=== PATIENT | female | born 1990 | race Two or more races ===

== ENCOUNTER 2024-07-11 19:37 | Emergency (ER) | payer MEDICAID, SELFPAY ==
[2024-07-11 19:38] VITALS: BMI 34.4
[2024-07-11 19:47] VITALS: BP 101/67; PULSE 60; RESP 17; TEMP 36.9; O2SAT 97
--- NOTE | 2024-07-11 20:09 | XR_ITS ---
Examination: PA lateral chest 2 views Technique: Upright PA lateral chest 2 views Exam date and time: June 10, 20252015 hrs. Comparison 03/15/2024 Indications: Chest tightness a few days Findings: Normal heart size Lungs are clear. The osseous structures are intact Impression: No active disease
--- NOTE | 2024-07-11 20:10 | PD.EDURI ---
Upper Respiratory Inf. RME/HPI General Chief Complaint: Flu Like Symptoms Stated Complaint: FLU LIKE SYMPTOMS;CP RAD TO BACK Time Seen by Provider: 07/11/24 19:48 Arrival date/time: 07/11/24 19:37 34-year-old female with a history of tobacco smoking but no history of asthma or lung disorders reports today with complaints of shortness of breath. Patient states that she has had a little bit of a cough and congestion for the last 2 or 3 days that suddenly developed into the shortness of breath. Patient states that she has been exposed to pneumonia as well as influenza. She denies any chest pain nausea vomiting abdominal pain weakness fatigue fever or chills. Patient states that she has been taking mhji-zyr-tzhyaax medications with no resolution of the shortness of breath Limitations: no limitations Related Data Home Medications ?Medication ?Instructions ?Recorded ?Confirmed vit no.95-ferrous 1 tab PO QDAY 04/08/21 10/07/21 fumarate 28 mg-folic acid 800 mcg tablet ( Multivitamins) Previous Rx's ?Medication ?Instructions ?Recorded benzocaine 20 %-menthol 0.5 % 1 spray topical TID #56 pumps 10/07/21 topical aerosol (Dermoplast (with menthol)) ibuprofen 800 mg tablet 800 mg PO Q6H PRN pain #90 tabs 10/07/21 lanolin 50 % topical ointment 1 applic topical TID PRN skin 10/07/21 irritation #15 tubes ibuprofen 800 mg tablet 800 mg PO TID PRN pain #30 tabs 05/27/22 albuterol sulfate 90 mcg/actuation 2 puff inhalation Q6H PRN 06/29/23 aerosol inhaler (Ventolin HFA) shortness of breath or wheezing #8.5 grams azithromycin 500 mg tablet See Rx Instructions PO .COMPLEX #6 06/29/23 tabs albuterol sulfate 90 mcg/actuation 2 puff inhalation Q4H PRN 07/11/24 aerosol inhaler shortness of breath or wheezing #8.5 grams prednisone 20 mg tablet 60 mg PO QDAY 4 days #12 tabs 07/11/24 Allergies Allergy/AdvReac Type Severity Reaction Status Date / Time No Known Allergies Allergy Verified 07/11/24 19:40 Review of Systems Constitutional Constitutional: Denies chills, Denies fever(s) and Denies headache(s) ENT Ears, Nose, Mouth, and Throat: Denies headache(s), Denies neck pain, Denies throat swelling, Denies tongue swelling and Denies vertigo Cardiovascular Cardiovascular: Denies chest pain and Reports dyspnea Respiratory Respiratory: Reports cough and Reports dyspnea Gastrointestinal Gastrointestinal: Denies nausea and Denies vomiting Musculoskeletal Musculoskeletal: Denies arthralgias, Denies back pain and Denies neck pain Integumentary/Breasts Skin/Breast: Denies erythema and Denies rash Neurologic Neurologic: Denies headache(s) and Denies vertigo Allergic/Immunologic Allergic/Immunologic: Denies throat swelling and Denies tongue swelling Past Medical History Past Medical History NEUROLOGIC: Positive Neurological Disorders and Seizures CARDIAC: Negative Cardiac Disorders or Congestive Heart Failure RESPIRATORY: Negative Chronic Obstructive Pulmonary Disease (COPD) or Asthma GASTROINTESTINAL: Negative Gastrointestinal Disorders GENITOURINARY: Negative Genitourinary Disorders or Renal Disease REPRODUCTIVE: Negative Pelvic Inflammatory Disease MUSCULOSKELETAL: Negative Musculoskeletal Disorders ENDOCRINE: Negative Endocrine Disorders, Diabetes Mellitus Type 1 or Diabetes Mellitus Type 2 HEMATOLOGIC: Negative Blood Disorders or Sickle Cell Disease OTHER HISTORY: Negative Autoimmune Disease, Blood Transfusions, Blood Transfusion Reaction, Anesthesia Reactions, Organ Transplant, Chemotherapy, Radiation Therapy, Hyperbaric Therapy, MRSA, VRSA, Vancomycin-Resistant Enterococci or Cancer Family History FAMILY HISTORY: Positive Family Cardiac Disorders and Family Surgery; Negative Family Psychiatric Problems, Family Respiratory Disorders, Family Gastrointestinal Problems, Family Cancer or Family Anesthesia Reaction Surgical History SURGICAL: Negative Section or Organ Transplant Social History SMOKING STATUS: Never smoker ED Exam General Limitations: Present no limitations General appearance: Present alert and in no apparent distress Head Head exam: Present atraumatic Eye Eye exam: Present normal appearance, PERRL and EOMI ENT ENT exam: Present normal exam, normal oropharynx and mucous membranes moist Neck Neck exam: Present normal inspection, full ROM and trachea midline Chest Chest inspection: Present normal inspection and symmetric chest wall rise Respiratory Respiratory exam: Present normal lung sounds bilaterally Cardiovascular Cardiovascular exam: Present regular rate, normal rhythm and normal heart sounds Abdominal Exam Abdominal exam: Present soft and normal bowel sounds Extremities Exam Extremities exam: Present normal inspection and full ROM Back Exam Back exam: Present normal inspection and full ROM Neurological Exam Neurological exam: Present alert, oriented X3 and CN II-XII intact Psychiatric Psychiatric exam: Present normal affect and normal mood Skin Skin exam: Present warm, dry, intact and normal color Course Course Course Narrative: 34-year-old female reports with complaints of shortness of breath. Patient's chest x-ray is without infiltrates or opacities COVID and influenza test are negative. Patient did receive an albuterol nebulizer and reassessment of the patient states that the tightness in her chest has not completely resolved but has improved significantly. Patient reports still persistent nasal congestion but no chest pain no abdominal pain no nausea or vomiting. Patient is respirations are 18 and oxygen saturations of 98% lungs are clear to auscultation bilaterally. Differential diagnosis includes upper respiratory infection versus lower respiratory infection versus influenza versus COVID versus pneumonia. Patient is currently stable nontoxic-appearing with stable vital signs she will be discharged home given a prescription for steroids albuterol inhaler advised on ggjz-boz-vmnozjr medications for congestion and following up with her primary care provider in 24 to 48 hours. Patient is also advised that her symptoms should worsen to return to the emergency department patient verbalized understanding Quality Measures none Orders Category Date Time Status Bedside COVID-19 Antigen Test NOW Care 07/11/24 20:09 Active Bedside Influenza A&B Antigen Test NOW Care 07/11/24 20:09 Completed XR chest 2V Stat Exams 07/11/24 20:09 Completed ALBUTEROL RT 0.5ml [Proventil Rt 0.5ml] Med 07/11/24 20:09 Discontinued 2.5 mg INH X1 ONE Dexamethasone Inj [Decadron Inj] Med 07/11/24 21:53 Discontinued 10 mg PO X1 ONE Sodium Chloride Rt Kisha 0.9% [NS Rt Kisha 0.9%] Med 07/11/24 20:09 Active 3 ml INH PRN PRN Vital Signs Vital signs: Vital Signs Temperature 98.5 F 07/11/24 19:47 Pulse Rate 60 07/11/24 19:47 Respiratory Rate 17 07/11/24 19:47 Blood Pressure 101/67 07/11/24 19:47 Pulse Oximetry (%) 97 07/11/24 19:47 Oxygen Delivery Method Room Air 07/11/24 19:47 Upper Respiratory Infection Patient data External records reviewed:: None Clinical information provided by:: patient Social determinants that could affect healthcare access:: none Patient has the following chronic illnesses:: none How is presenting disease/condition affected by chronic disease/condition?: no chronic disease Evaluation data The following diagnostics were reviewed and interpreted by me:: lab results and radiology exam(s) Lab and/or radiology exams considered but not ordered:: none Interpretation Summary: Negative for evidence of flu COVID or pneumonia Medications / Prescriptions Medications or Prescriptions considered but not ordered:: None Medication administrations:: Medication Administration History Sodium Chloride (Sodium Chloride Rt Kisha 0.9% 3 Ml Nebu) 3 ml INH PRN PRN PRN Reason: SOLN Stop: 08/10/24 20:08 Last Admin: 07/11/24 20:22 Dose: 3 ml Documented By: STEFANI Discontinued Medications Albuterol (Albuterol Rt 2.5 Mg/0.5 Ml Nebu) 2.5 mg INH X1 ONE Stop: 07/11/24 20:10 Last Admin: 07/11/24 20:21 Dose: 2.5 mg Documented By: STEFANI Dexamethasone Sodium Phosphate (Dexamethasone Sod Phos Inj 10 Mg/Ml Vial) 10 mg PO X1 ONE Stop: 07/11/24 21:54 As above Consultations Consultation(s) initiated? (list below): No Diagnosis Upper Respiratory Differential Diagnosis: upper respiratory infection Most likely diagnosis given after review of the tests above:: Viral upper respiratory infection Admission Indicated Admission indicated?: not indicated Admission Request Was there a request for admission?: No Disposition Plan Disposition Plan: Discharge Discharge Attestation Discharge Attestation: The patient and all family members were given an opportunity to ask questions and understood the discharge instructions. Discharge instructions specifically effects, indications for sooner follow up or return to the emergency department, and the expected course of current diagnosis. Patient condition: Stable Discharge Plan Plan Patient Disposition: HOME (Self Care) Prescriptions/Referrals Prescriptions/Med Rec: New prednisone 20 mg tablet 60 mg PO QDAY 4 Days Qty: 12 0RF Taper: Prednisone Taper 20 mg DAILY for 2 Days and 0 Hour 10 mg DAILY for 2 Days and 0 Hour 5 mg DAILY for 7 Days and 0 Hour albuterol sulfate 90 mcg/actuation HFA aerosol inhaler 2 puff inhalation Q4H PRN (Reason: shortness of breath or wheezing) Qty: 8.5 0RF No Action PNV cmb#95-ferrous fumarate-FA [ Multivitamins] 28 mg iron- 800 mcg Tablet 1 tab PO QDAY Dermoplast (with menthol) 20-0.5 % aerosol 1 spray topical TID Qty: 56 0RF ibuprofen 800 mg tablet 800 mg PO Q6H MDD 4 PRN (Reason: pain) Qty: 90 0RF lanolin 50 % ointment 1 applic topical TID PRN (Reason: skin irritation) Qty: 15 0RF ibuprofen 800 mg tablet 800 mg PO TID PRN (Reason: pain) Qty: 30 0RF albuterol sulfate [Ventolin HFA] 90 mcg/actuation HFA aerosol inhaler 2 puff inhalation Q6H PRN (Reason: shortness of breath or wheezing) Qty: 8.5 0RF azithromycin 500 mg tablet See Rx Instructions .ROUTE .COMPLEX Qty: 6 0RF Rx Instructions: take 500 mg today (day 1), then 250 mg for 4 days (days 2-5) Referrals: No Primary/Family,Physician [Primary Care Provider] - In 1 week Problem List Clinical Impression: Viral URI Patient/Caregiver Discharge Instructions Discharge Activity: activity as tolerated Education Materials: ED URI, Viral, No Abx (Adult) Additional Instructions: Take medication as directed hydrate well follow-up with your primary care provider in 24 to 48 hours. Return to emergency department if symptoms should worsen Print Language: Andorran Stand Alone Forms: Emilie Award Info., Patient Portal Info Letter
[2024-07-11 20:21] VITALS: PULSE 55
[2024-07-11] MEDS: ALBUTEROL RT 2.5 MG/0.5 ML NEBU INH (20:21)
[2024-07-11] MEDS: SODIUM CHLORIDE RT SOL 0.9% 3 ML NEBU INH (20:22)
[2024-07-11 20:25] VITALS: PULSE 18; RESP 18; O2SAT 98
[2024-07-11 21:54] VITALS: BP 116/74; PULSE 61; RESP 17; TEMP 37.1; O2SAT 98
[2024-07-11] MEDS: DEXAMETHASONE SOD PHOS INJ 10 MG/ML VIAL PO (22:10)
== END 2024-07-11 22:12 | disposition home or self-care (01) ==
PROVIDERS: Emergency Provider Emergency Medicine
DX: J06.9 Acute upper respiratory infection, unspecified (principal); B97.89 Other viral agents as the cause of diseases classified elsewhere
CPT/HCPCS: 71046; 87400; 87811; 94640; 99283; J1100

== ENCOUNTER 2024-10-24 06:20 | Emergency (ER) | payer MEDICAID, SELFPAY ==
[2024-10-24 06:21] VITALS: BP 111/72; PULSE 62; RESP 18; TEMP 36.8; O2SAT 98; BMI 35.9
--- NOTE | 2024-10-24 06:45 | XR_ITS ---
Examination: CT abdomen with intravenous contrast CT pelvis with intravenous contrast 2-D coronal reconstructions 2-D sagittal reconstructions Date and time of exam:October 16, 2024 0905 hours INDICATIONS: Onset abdominal pain beginning 4 days ago after falling. CTDI: vol (mGy) 10.6 DLP: (mGycm) 615 Technique: Multiple axial sections of the abdomen and pelvis have been obtained. 64 slice high-resolution scanner used. 3 mm axial sections have been obtained, post intravenous injection 60 cc [id number] 2-D sagittal, coronal reconstructions obtained. Low dose protocols were performed. One or more of the following dose reduction techniques were used; automated exposure control, adjustment of the mA and/or KV according to patient size, use of iterative reconstruction technique. Findings: No liver splenic or renal laceration No perinephric hematoma No gallstones No pancreatic mass or peripancreatic edema Aorta normal size No free blood in the abdomen Negative for pneumoperitoneum Mild soft tissue contusion in subcutaneous fatty tissue anterior abdominal wall for instance axial image 122 Thickening of the umbilical tract Normal appendix Intact urinary bladder Lumbar vertebral bodies bones of the pelvis sacral segments and hips appear intact IMPRESSION: Mild soft tissue contusion in the subcutaneous fatty tissue anterior abdominal wall No abdominal parenchymal laceration Abdominal aorta intact No free blood in the abdomen or pelvis
[2024-10-24 07:15] LABS: Collection Type, Urine Clean Catch
[2024-10-24 07:43] LABS: HCG Qualitative,Urine Negative
[2024-10-24 07:58] LABS: Bilirubin,Urine Negative (Negative); Blood,Urine Negative (Negative); Clarity,Urine Clear (Clear/Hazy); Color,Urine Yellow (Lt Yel-Yel); Culture Indicated,Urine Not Indicated; Glucose, Urine Negative (Negative); Ketones,Urine Negative (Negative); Leukocyte Esterase,Urine Positive (Negative); Nitrite,Urine Negative (Negative); Protein,Urine Negative (Neg - Trace); RBC,Urine 3 /hpf (0-3); Specific Gravity,Urine 1.028 (1.001-1.035); Squamous Epithelial Cell,Urine 6 /hpf (0-5); Urobilinogen,Urine Negative mg/dL (0.0-1.0); WBC,Urine 1 /hpf (0-5)
[2024-10-24 08:04] LABS: Basophils % (Auto) 1 % (0-2.5); Eosinophils # (Auto) 0.2 Thou/mm3 (0.0-0.5); Eosinophils % (Auto) 4 % (0-10); Hemoglobin 13.6 g/dL (12.0-16.0); Immature Granulocytes % (Auto) 0 % (0-0); Immature Granulocytes Auto 0.01 Thou/mm3 (0.00-0.00); Lymphocytes # (Auto) 2.3 Thou/mm3 (1.0-4.8); Lymphocytes % (Auto) 34 % (10-50); Mean Corpuscular HGB Conc 33.2 g/dl (31.0-37.0); Mean Corpuscular Volume 85 fL (80-100); Monocytes # (Auto) 0.5 Thou/mm3 (0.0-0.8); Monocytes % (Auto) 7 % (0-12); Neutrophils # (Auto) 3.7 Thou/mm3 (1.8-7.7); Neutrophils % (Auto) 55 % (37-80); Nucleated Red Blood Cell % 0 /100 WBC (0); Platelet Count 235 Thou/mm3 (140-440); Red Blood Count 4.85 Miln/mm3 (4.00-5.20); White Blood Count 6.8 Thou/mm3 (3.6-11.0)
[2024-10-24 08:13] LABS: Alanine Aminotransferase 35 U/L (10-49); Albumin, Serum 4.6 gm/dL (3.5-5.0); Albumin/Globulin Ratio 1.5 (1.2-2.2); Alkaline Phosphatase 85 U/L (46-116); Anion Gap 5 (7-16); Aspartate Amino Transferase 22 U/L (0-34); BUN/Creatinine Ratio 14 Ratio (12-20); Bilirubin,Total 0.6 mg/dL (0.3-1.2); Blood Urea Nitrogen 11 mg/dL (9-23); Calcium 9.3 mg/dL (8.3-10.6); Calcium (Corrected) 9.3 mg/dL (8.5-10.1); Carbon Dioxide 29.6 mMol/L (20.0-31.0); Chloride 106 mMol/L (98-107); Creatinine (Component) 0.8 mg/dL (0.6-1.3); Estimated Creatinine Clearance 120.5 mL/min (>60); Glucose 109 mg/dL (74-106); Lipase 35 U/L (12-53); Osmolality,Calculated 281 (275-295); Potassium 4.1 mMol/L (3.4-5.1); Sodium 141 mMol/L (136-145); Total Protein 7.6 gm/dL (5.7-8.2); eGFR > 60 See Note
--- NOTE | 2024-10-24 10:30 | EDNOTE_ITS ---
<Statement entered by Lakshmi Gutierrez MD - 10/24/24 14:45> As co-signing physician, I was present and available for consult prn. I concur with the plan and care as documented by the midlevel provider. ED Abdominal Pain RME/HPI General Chief Complaint: Abdominal Pain Stated complaint: BRUISING/PAIN TO ABDOMEN S/P FALLING X5 DAYS AGO Time seen by provider: 10/24/24 06:21 Arrival date/time: 10/24/24 06:20 34-year-old female presents emergency department today states she tripped and f ell approximate 5 days ago hitting her abdomen on a chair patient reports bruising to her abdomen Limitations: no limitations Related Data Home Medications ?Medication ?Instructions ?Recorded ?Confirmed vit no.95-ferrous 1 tab PO QDAY 04/08/2109/27 fumarate 28 mg-folic acid 800 mcg tablet ( Multivitamins) Previous Rx's ?Medication ?Instructions ?Recorded benzocaine 20 %-menthol 0.5 % 1 spray topical TID #56 pumps 10/07/21 topical aerosol (Dermoplast (with menthol)) ibuprofen 800 mg tablet 800 mg PO Q6H PRN pain #90 t abs 10/07/21 lanolin 50 % topical ointment 1 applic topical TID PRN skin 10/07/21 irritation #15 tubes ibuprofen 800 mg tablet 800 mg PO TID PRN pain #30 t abs 05/27/22 albuterol sulfate 90 mcg/actuation 2 puff inhalation Q 6H PRN 06/29/23 aerosol inhaler (Ventolin HFA) shortness of breath or wheezing #8.5 grams azithromycin 500 mg tablet See Rx Instructions PO .COM PLEX #6 06/29/23 tabs albuterol sulfate 90 mcg/actuation 2 puff inhalation Q 4H PRN 07/11/24 aerosol inhaler shortness of breath or wheez ing #8.5 grams Allergies Allergy/AdvReac Type Severity Reaction Status Date / Time No Known Allergies Allergy Verified 10/24/24 06:22 Review of Systems Review of Systems Systems Reviewed: All systems reviewed, normal except as documented Constitutional Constitutional: Reports system reviewed and no additional complaints, except as documented, Denies fever(s) and Denies headache(s) Eyes Eyes: Reports system reviewed and no additional complaints, except as documented and Denies blurry vision ENT Ears, Nose, Mouth, and Throat: Reports system reviewed and no additional complaints, except as documented, Denies headache(s), Denies nasal congestion and Denies nasal discharge Cardiovascular Cardiovascular: Reports system reviewed and no additional complaints, except as documented, Denies chest pain and Denies dyspnea Respiratory Respiratory: Reports system reviewed and no additional complaints, except as documented, Denies chest congestion, Denies cough and Denies dyspnea Gastrointestinal Gastrointestinal: Reports system reviewed and no additional complaints, except as documented and Denies abdominal pain Integumentary/Breasts Skin/Breast: Reports system reviewed and no additional complaints, except as documented, Denies rash and Reports other (Bruising abdomen) Neurologic Neurologic: Reports system reviewed and no additional complaints, except as documented, Reports as per HPI and Denies headache(s) Past Medical History Past Medical History NEUROLOGIC: Positive Neurological Disorders and Seizures CARDIAC: Negative Cardiac Disorders or Congestive Heart Failure RESPIRATORY: Negative Chronic Obstructive Pulmonary Disease (COPD) or Asthma GASTROINTESTINAL: Negative Gastrointestinal Disorders GENITOURINARY: Negative Genitourinary Disorders or Renal Disease REPRODUCTIVE: Negative Pelvic Inflammatory Disease MUSCULOSKELETAL: Negative Musculoskeletal Disorders ENDOCRINE: Negative Endocrine Disorders, Diabetes Mellitus Type 1 or Diabetes Mellitus Type 2 HEMATOLOGIC: Negative Blood Disorders or Sickle Cell Disease OTHER HISTORY: Negative Autoimmune Disease, Blood Transfusions, Blood Transfusion Reaction, Anesthesia Reactions, Organ Transplant, Chemotherapy, Radiation Therapy, Hyperbaric Therapy, MRSA, VRSA, Vancomycin-Resistant Enterococci or Cancer Family History FAMILY HISTORY: Positive Family Cardiac Disorders and Family Surgery; Negative Family Psychiatric Problems, Family Respiratory Disorders, Family Gastrointestinal Problems, Family Cancer or Family Anesthesia Reaction Surgical History SURGICAL: Negative Section or Organ Transplant Social History SMOKING STATUS: Never smoker ED Exam General Limitations: Present no limitations General appearance: Present alert and in no apparent distress Head Head exam: Present atraumatic Eye Eye exam: Present normal appearance, PERRL and EOMI ENT ENT exam: Present normal exam, normal oropharynx and mucous membranes moist Neck Neck exam: Present normal inspection, full ROM and trachea midline Chest Chest inspection: Present normal inspection and symmetric chest wall rise Respiratory Respiratory exam: Present normal lung sounds bilaterally Cardiovascular Cardiovascular exam: Present regular rate, normal rhythm and normal heart sounds Abdominal Exam Abdominal exam: Present soft, tenderness, normal bowel sounds and other (Bruising abdomen); Absent distention, guarding, rebound or rigidity Extremities Exam Extremities exam: Present normal inspection and full ROM Back Exam Back exam: Present normal inspection and full ROM Neurological Exam Neurological exam: Present alert, oriented X3 and CN II-XII intact Psychiatric Psychiatric exam: Present normal affect and normal mood Skin Skin exam: Present warm, dry and other (Bruising abdomen) Course Quality Measures none Orders Category Date Time Status CT Screening NOW Care 10/24/24 06:45 Completed Insert IV NOW Care 10/24/24 06:[address] abdomen pelvis w con Stat Exams 10/24/24 06:45 Completed CBC Stat Lab 10/24/24 07:39 Completed Comprehensive Metabolic Panel Stat Lab 10/24/24 07:39 Completed HCG Qualitative,Urine Stat Lab 10/24/24 07:05 Completed Lipase Stat Lab 10/24/24 07:39 Completed UA, C/S IF [Urinalysis, C/S if Indicated] Stat Lab 10/24/24 07:05 Completed Vital Signs Vital signs: Vital Signs Temperature 98.2 F 10/24/24 06:21 Pulse Rate 62 10/24/24 06:21 Respiratory Rate 18 10/24/24 06:21 Blood Pressure 111/72 10/24/24 06:21 Pulse Oximetry (%) 98 10/24/24 06:21 Oxygen Delivery Method Room Air 10/24/24 06:21 O2 saturation 98% on room air with normal limits Abdominal Pain MDM MDM Narrative MDM Narrative:: 34-year-old female presents emergency department today states she tripped and fell approximate 5 days ago hitting her abdomen on a chair patient reports bruising to her abdomen Lab work and imaging obtained no acute emergent findings noted CT scan consistent with contusion/hematoma On exam patient has bruising umbilical region not diffuse Patient discharged home in no distress to follow-up with primary care doctor in the next 24 to 48 hours and for any worsening symptoms to return to the ER immediately Patient data External records reviewed:: [facility] previous records Clinical information provided by:: patient Social determinants that could affect healthcare access:: none Patient has the following chronic illnesses:: Reviewed by me How is presenting disease/condition affected by chronic disease/condition?: no chronic disease Evaluation data The following diagnostics were reviewed and interpreted by me:: lab results and radiology exam(s) Lab and/or radiology exams considered but not ordered:: Radiology and labs obtained Interpretation Summary: Reviewed by me Medications / Prescriptions Medications or Prescriptions considered but not ordered:: Given no meds Medication administrations:: No meds Consultations Consultation(s) initiated? (list below): No Diagnosis Differential diagnosis abdominal pain: abdominal pain, endometriosis and small bowel obstruction Most likely diagnosis given after review of the tests above:: Abdominal trauma, bruising Admission Indicated Admission indicated?: not indicated Admission Request Was there a request for admission?: No Disposition Plan Disposition Plan: Discharge Discharge Attestation Discharge Attestation: The patient and all family members were given an opportunity to ask questions and understood the discharge instructions. Discharge instructions specifically effects, indications for sooner follow up or return to the emergency department, and the expected course of current diagnosis. Patient condition: Stable Discharge Plan Plan Patient Disposition: HOME (Self Care) Disposition Comment: Stable Prescriptions/Referrals Prescriptions/Med Rec: No Action PNV cmb#95-ferrous fumarate-FA [ Multivitamins] 28 mg iron- 800 mcg Tablet 1 tab PO QDAY Dermoplast (with menthol) 20-0.5 % aerosol 1 spray topical TID Qty: 56 0RF ibuprofen 800 mg tablet 800 mg PO Q6H MDD 4 PRN (Reason: pain) Qty: 90 0RF lanolin 50 % ointment 1 applic topical TID PRN (Reason: skin irritation) Qty: 15 0RF ibuprofen 800 mg tablet 800 mg PO TID PRN (Reason: pain) Qty: 30 0RF albuterol sulfate [Ventolin HFA] 90 mcg/actuation HFA aerosol inhaler 2 puff inhalation Q6H PRN (Reason: shortness of breath or wheezing) Qty: 8.5 0RF azithromycin 500 mg tablet See Rx Instructions .ROUTE .COMPLEX Qty: 6 0RF Rx Instructions: take 500 mg today (day 1), then 250 mg for 4 days (days 2-5) albuterol sulfate 90 mcg/actuation HFA aerosol inhaler 2 puff inhalation Q4H PRN (Reason: shortness of breath or wheezing) Qty: 8.5 0RF Referrals: Kathy Rivera FNP ([email or web address]) [Primary Care Provider] - In 1 week Problem List Clinical Impression: Abdominal wall contusion Patient/Caregiver Discharge Instructions Education Materials: Bruises (Contusions) Additional Instructions: Please follow up with your primary care doctor in the next 24-48hrs for any worsening symptoms return here immediately Print Language: Filipino Stand Alone Forms: Emilie Award Info., Patient Portal Info Letter PA/STOCK PARTS INSPECTOR Supervising Physician PA/STOCK PARTS INSPECTOR Supervising Physician: Dr. GUTIERREZ
[2024-10-24 10:58] VITALS: PULSE 77; RESP 16; O2SAT 99
== END 2024-10-24 10:59 | disposition home or self-care (01) ==
PROVIDERS: Nurse Practitioner Primary Care; Emergency Provider Emergency Medicine; PCP Nurse Practitioner Primary Care
DX: S30.1XXA Contusion of abdominal wall, initial encounter (principal); W01.0XXA Fall on same level from slipping, tripping and stumbling without subsequent striking against object, initial encounter
CPT/HCPCS: 36415; 74177; 80053; 81001; 81025; 83690; 85025; 99285; A4649; Q9967

== ENCOUNTER 2024-10-26 13:33 | Emergency (ER) | payer MEDICAID, SELFPAY ==
[2024-10-26 13:39] VITALS: BP 125/77; PULSE 71; RESP 20; TEMP 36.9; O2SAT 97; BMI 40.2
--- NOTE | 2024-10-26 13:43 | EDNOTE_ITS ---
ED Abdominal Pain RME/HPI General Chief Complaint: Abdominal Pain Stated complaint: ABD PAIN RAD TO BACK Time seen by provider: 10/26/24 13:43 Arrival date/time: 10/26/24 13:33 34-year-old female presents emergency department today complaints of abdominal pain patient was recently seen at lab work and CT scan after trauma to the abdomen Limitations: no limitations Related Data Home Medications ?Medication ?Instructions ?Recorded ?Confirmed vit no.95-ferrous 1 tab PO QDAY 04/08/2109/27 fumarate 28 mg-folic acid 800 mcg tablet ( Multivitamins) Previous Rx's ?Medication ?Instructions ?Recorded benzocaine 20 %-menthol 0.5 % 1 spray topical TID #56 pumps 10/07/21 topical aerosol (Dermoplast (with menthol)) ibuprofen 800 mg tablet 800 mg PO Q6H PRN pain #90 t abs 10/07/21 lanolin 50 % topical ointment 1 applic topical TID PRN skin 10/07/21 irritation #15 tubes ibuprofen 800 mg tablet 800 mg PO TID PRN pain #30 t abs 05/27/22 albuterol sulfate 90 mcg/actuation 2 puff inhalation Q 6H PRN 06/29/23 aerosol inhaler (Ventolin HFA) shortness of breath or wheezing #8.5 grams azithromycin 500 mg tablet See Rx Instructions PO .COM PLEX #6 06/29/23 tabs albuterol sulfate 90 mcg/actuation 2 puff inhalation Q 4H PRN 07/11/24 aerosol inhaler shortness of breath or wheez ing #8.5 grams Allergies Allergy/AdvReac Type Severity Reaction Status Date / Time No Known Allergies Allergy Verified 10/24/24 06:22 Review of Systems Review of Systems Systems Reviewed: All systems reviewed, normal except as documented Constitutional Constitutional: Reports system reviewed and no additional complaints, except as documented, Denies fever(s) and Denies headache(s) Eyes Eyes: Reports system reviewed and no additional complaints, except as documented and Denies blurry vision ENT Ears, Nose, Mouth, and Throat: Reports system reviewed and no additional complaints, except as documented, Denies headache(s), Denies nasal congestion and Denies nasal discharge Cardiovascular Cardiovascular: Reports system reviewed and no additional complaints, except as documented, Denies chest pain and Denies dyspnea Respiratory Respiratory: Reports system reviewed and no additional complaints, except as documented, Denies chest congestion, Denies cough and Denies dyspnea Gastrointestinal Gastrointestinal: Reports system reviewed and no additional complaints, except as documented, Reports abdominal pain, Denies hematemesis, Denies loose stools and Denies nausea Integumentary/Breasts Skin/Breast: Reports system reviewed and no additional complaints, except as documented and Denies rash Neurologic Neurologic: Reports system reviewed and no additional complaints, except as documented, Reports as per HPI and Denies headache(s) Past Medical History Past Medical History NEUROLOGIC: Positive Neurological Disorders and Seizures CARDIAC: Negative Cardiac Disorders or Congestive Heart Failure RESPIRATORY: Negative Chronic Obstructive Pulmonary Disease (COPD) or Asthma GASTROINTESTINAL: Negative Gastrointestinal Disorders GENITOURINARY: Negative Genitourinary Disorders or Renal Disease REPRODUCTIVE: Negative Pelvic Inflammatory Disease MUSCULOSKELETAL: Negative Musculoskeletal Disorders ENDOCRINE: Negative Endocrine Disorders, Diabetes Mellitus Type 1 or Diabetes Mellitus Type 2 HEMATOLOGIC: Negative Blood Disorders or Sickle Cell Disease OTHER HISTORY: Negative Autoimmune Disease, Blood Transfusions, Blood Transfusion Reaction, Anesthesia Reactions, Organ Transplant, Chemotherapy, Radiation Therapy, Hyperbaric Therapy, MRSA, VRSA, Vancomycin-Resistant E nterococci or Cancer Family History FAMILY HISTORY: Positive Family Cardiac Disorders and Family Surgery; Negative Family Psychiatric Problems, Family Respiratory Disorders, Family Gastrointestinal Problems, Family Cancer or Family Anesthesia Reaction Surgical History SURGICAL: Negative Section or Organ Transplant Social History SMOKING STATUS: Current every day smoker ED Exam General Limitations: Present no limitations General appearance: Present alert and in no apparent distress Head Head exam: Present atraumatic, normocephalic and normal inspection Eye Eye exam: Present normal appearance, PERRL and EOMI; Absent conjunctival injection ENT ENT exam: Present normal exam, normal oropharynx and mucous membranes moist Neck Neck exam: Present normal inspection, full ROM and trachea midline Chest Chest inspection: Present normal inspection and symmetric chest wall rise Respiratory Respiratory exam: Present normal lung sounds bilaterally Cardiovascular Cardiovascular exam: Present regular rate, normal rhythm and normal heart sounds Abdominal Exam Abdominal exam: Present soft and normal bowel sounds Extremities Exam Extremities exam: Present normal inspection and full ROM Back Exam Back exam: Present normal inspection and full ROM Neurological Exam Neurological exam: Present alert, oriented X3 and CN II-XII intact Psychiatric Psychiatric exam: Present normal affect and normal mood Skin Skin exam: Present warm, dry, intact and normal color Course Quality Measures none Vital Signs Vital signs: Vital Signs Temperature 98.5 F 10/26/24 13:39 Pulse Rate 71 10/26/24 13:39 Respiratory Rate 20 10/26/24 13:39 Blood Pressure 125/77 10/26/24 13:39 Pulse Oximetry (%) 97 10/26/24 13:39 Oxygen Delivery Method Room Air 10/26/24 13:39 O2 saturation 97% room air within normal limits Abdominal Pain MDM MDM Narrative MDM Narrative:: 34-year-old female presents emergency department today complaints of abdominal pain patient was recently seen at lab work and CT scan after trauma to the abdomen On exam patient well-appearing patient does not appear toxic patient does have bruise to the abdomen but no distention I reviewed the patient's lab work and CT from previous visit and I did see the patient on last visit no acute emergent findings were found Patient discharged home in no distress to follow-up with primary care doctor in the next 24 to 48 hours and for any worsening symptoms to return to the ER immediately Patient data External records reviewed:: [facility] previous records Clinical information provided by:: patient Social determinants that could affect healthcare access:: none Patient has the following chronic illnesses:: None How is presenting disease/condition affected by chronic disease/condition?: no chronic disease Evaluation data The following diagnostics were reviewed and interpreted by me:: other (specify) (N/A) Lab and/or radiology exams considered but not ordered:: Consider not ordered Interpretation Summary: N/A Medications / Prescriptions Medications or Prescriptions considered but not ordered:: No Meds Medication administrations:: No meds Consultations Consultation(s) initiated? (list below): No Diagnosis Differential diagnosis abdominal pain: abdominal pain, acute appendicitis, calculus of kidney and pancreatitis Most likely diagnosis given after review of the tests above:: Abdominal pain Admission Indicated Admission indicated?: not indicated Admission Request Was there a request for admission?: No Disposition Plan Disposition Plan: Discharge Discharge Attestation Discharge Attestation: The patient and all family members were given an opportunity to ask questions and understood the discharge instructions. Discharge instructions specifically effects, indications for sooner follow up or return to the emergency department, and the expected course of current diagnosis. Patient condition: Stable Discharge Plan Plan Patient Disposition: HOME (Self Care) Disposition Comment: Stable Prescriptions/Referrals Prescriptions/Med Rec: No Action PNV cmb#95-ferrous fumarate-FA [ Multivitamins] 28 mg iron- 800 mcg Tablet 1 tab PO QDAY Dermoplast (with menthol) 20-0.5 % aerosol 1 spray topical TID Qty: 56 0RF ibuprofen 800 mg tablet 800 mg PO Q6H MDD 4 PRN (Reason: pain) Qty: 90 0RF lanolin 50 % ointment 1 applic topical TID PRN (Reason: skin irritation) Qty: 15 0RF ibuprofen 800 mg tablet 800 mg PO TID PRN (Reason: pain) Qty: 30 0RF albuterol sulfate [Ventolin HFA] 90 mcg/actuation HFA aerosol inhaler 2 puff inhalation Q6H PRN (Reason: shortness of breath or wheezing) Qty: 8.5 0RF azithromycin 500 mg tablet See Rx Instructions .ROUTE .COMPLEX Qty: 6 0RF Rx Instructions: take 500 mg today (day 1), then 250 mg for 4 days (days 2-5) albuterol sulfate 90 mcg/actuation HFA aerosol inhaler 2 puff inhalation Q4H PRN (Reason: shortness of breath or wheezing) Qty: 8.5 0RF Problem List Clinical Impression: Abdominal pain Patient/Caregiver Discharge Instructions Education Materials: Abdominal Pain Additional Instructions: Please follow up with your primary care doctor in the next 24-48hrs for any worsening symptoms return here immediately Print Language: Lithuanian Stand Alone Forms: Emilie Award Info., Work/School Release, Patient Portal Info Letter PA/TODDLER NANNY Supervising Physician PA/TODDLER NANNY Supervising Physician: Dr piper
== END 2024-10-26 13:53 | disposition home or self-care (01) ==
LOC: SERX 13:50
PROVIDERS: Emergency Provider Emergency Medicine; PCP Nurse Practitioner Family
DX: R10.9 Unspecified abdominal pain (principal)
CPT/HCPCS: 99281

== ENCOUNTER → 2024-10-27 | Outpatient (CLI) | payer MEDICAID, SELFPAY ==
--- NOTE | 2024-10-27 13:35 | XR_ITS ---
Examination: Abdomen 2 views Technique one AP supine AP upright abdomen 2 views Exam date and time: October 27, 2024 at 1557 hours INDICATIONS: Left-sided abdominal pain beginning 2 weeks ago. FINDINGS: Moderate stool throughout the colon No obstruction No free air No abnormal calcific densities IMPRESSION: Nonobstructive bowel gas pattern
== END | disposition home or self-care (01) ==
LOC: CDIM 13:24
PROVIDERS: PCP Nurse Practitioner Family; Referring Provider Nurse Practitioner Family; Visit Provider Nurse Practitioner Family
DX: R10.2 Pelvic and perineal pain (principal)
CPT/HCPCS: 74019

== ENCOUNTER 2025-02-12 06:05 | Emergency (ER) | payer MEDICAID, SELFPAY ==
[2025-02-12 06:06] VITALS: BMI 34.9
[2025-02-12 06:15] VITALS: BP 126/57; PULSE 95; RESP 19; TEMP 37.1; O2SAT 96
--- NOTE | 2025-02-12 06:23 | XR_ITS ---
Examination: PA lateral chest 2 views TECHNIQUE: Upright PA and lateral chest 2 views Date and time: February 12, 2025 0710 hours, comparison July 11, 2024 INDICATION: Coughing and fever beginning 6 days ago. FINDINGS: Normal heart size Mild accentuation of basilar bronchovascular markings. The osseous structures are intact IMPRESSION: Mild basilar bronchitis pattern
--- NOTE | 2025-02-12 06:24 | EDNOTE_ITS ---
<Statement entered by Lakshmi Gutierrez MD - 02/27/25 06:34> As co-signing physician, I was present and available for consult prn. I concur with the plan and care as documented by the midlevel provider. Upper Respiratory Inf. RME/HPI General Chief Complaint: Flu Like Symptoms Stated Complaint: COUGH AND CONGESTION Time Seen by Provider: 02/12/25 06:09 Source: patient Arrival date/time: 02/12/25 06:05 34-year-old female with no known medical history presents to the emergency room with a chief complaint of cough, congestion, intermittent fevers x 1 week Mode of arrival: ambulatory Limitations: no limitations Related Data Home Medications ?Medication ?Instructions ?Recorded ?Confirmed vit no.95-ferrous 1 tab PO QDAY 04/08/2109/27 fumarate 28 mg-folic acid 800 mcg tablet ( Multivitamins) Previous Rx's ?Medication ?Instructions ?Recorded benzocaine 20 %-menthol 0.5 % 1 spray topical TID #56 pumps 10/07/21 topical aerosol (Dermoplast (with menthol)) ibuprofen 800 mg tablet 800 mg PO Q6H PRN pain #90 t abs 10/07/21 lanolin 50 % topical ointment 1 applic topical TID PRN skin 10/07/21 irritation #15 tubes ibuprofen 800 mg tablet 800 mg PO TID PRN pain #30 t abs 05/27/22 albuterol sulfate 90 mcg/actuation 2 puff inhalation Q 6H PRN 06/29/23 aerosol inhaler (Ventolin HFA) shortness of breath or wheezing #8.5 grams azithromycin 500 mg tablet See Rx Instructions PO .COM PLEX #6 06/29/23 tabs albuterol sulfate 90 mcg/actuation 2 puff inhalation Q 4H PRN 07/11/24 aerosol inhaler shortness of breath or wheez ing #8.5 grams albuterol sulfate 90 mcg/actuation 2 puff inhalation Q 6H PRN 02/12/25 aerosol inhaler (Ventolin HFA) shortness of breath or wheezing #6.7 grams azithromycin 250 mg tablet See Rx Instructions PO .COM PLEX #6 02/12/25 (Zithromax Z-[place]) tabs prednisone 20 mg tablet 40 mg (2 x 20 mg) PO QDAY 4 days 02/12/25 #8 tabs Allergies Allergy/AdvReac Type Severity Reaction Status Date / Time No Known Allergies Allergy Verified 02/12/25 06:08 Review of Systems Review of Systems Systems Reviewed: All systems reviewed, normal except as documented Constitutional Constitutional: Reports system reviewed and no additional complaints, except as documented, Denies fatigue, Reports fever(s), Denies headache(s) and Reports weakness Eyes Eyes: Reports system reviewed and no additional complaints, except as documented, Denies blurry vision and Denies change in vision ENT Ears, Nose, Mouth, and Throat: Reports system reviewed and no additional complaints, except as documented, Denies otalgia, Denies headache(s), Denies n gina congestion, Denies throat swelling and Denies vertigo Cardiovascular Cardiovascular: Reports system reviewed and no additional complaints, except as documented, Denies chest pain, Reports dyspnea and Denies dyspnea on exertion Respiratory Respiratory: Reports system reviewed and no additional complaints, except as documented, Reports chest congestion, Reports cough, Reports dyspnea, Denies dyspnea on exertion and Denies wheezing Gastrointestinal Gastrointestinal: Reports system reviewed and no additional complaints, except as documented, Denies abdominal pain, Denies cramping, Denies nausea and Denies vomiting Genitourinary Genitourinary: Reports system reviewed and no additional complaints, except as documented Musculoskeletal Musculoskeletal: Reports system reviewed and no additional complaints, except as documented and Denies back pain Integumentary/Breasts Skin/Breast: Reports system reviewed and no additional complaints, except as documented and Denies wounds Neurologic Neurologic: Reports system reviewed and no additional complaints, except as documented, Denies confusion, Denies headache(s), Denies lack of coordination, Denies vertigo and Reports weakness Psychiatric Psychiatric: Reports system reviewed and no additional complaints, except as documented, Denies anxiety, Denies confusion, Denies depression, Denies paranoia, Denies suicidal ideation and Denies tactile hallucinations Endocrine Endocrine: Reports system reviewed and no additional complaints, except as documented and Denies fatigue Hematologic/Lymphatic Hematologic/Lymphatic: Reports system reviewed and no additional complaints, except as documented and Denies lymphadenopathy Allergic/Immunologic Allergic/Immunologic: Reports system reviewed and no additional complaints, except as documented, Denies throat swelling, Denies urticaria and Denies wheezing Past Medical History Past Medical History NEUROLOGIC: Positive Neurological Disorders and Seizures CARDIAC: Negative Cardiac Disorders or Congestive Heart Failure RESPIRATORY: Negative Chronic Obstructive Pulmonary Disease (COPD) or Asthma GASTROINTESTINAL: Negative Gastrointestinal Disorders GENITOURINARY: Negative Genitourinary Disorders or Renal Disease REPRODUCTIVE: Negative Pelvic Inflammatory Disease MUSCULOSKELETAL: Negative Musculoskeletal Disorders ENDOCRINE: Negative Endocrine Disorders, Diabetes Mellitus Type 1 or Diabetes Mellitus Type 2 HEMATOLOGIC: Negative Blood Disorders or Sickle Cell Disease OTHER HISTORY: Negative Autoimmune Disease, Blood Transfusions, Blood Transfusion Reaction, Anesthesia Reactions, Organ Transplant, Chemotherapy, Radiation Therapy, Hyperbaric Therapy, MRSA, VRSA, Vancomycin-Resistant Enterococci or Cancer Family History FAMILY HISTORY: Positive Family Cardiac Disorders and Family Surgery; Negative Family Psychiatric Problems, Family Respiratory Disorders, Family Gastrointestinal Problems, Family Cancer or Family Anesthesia Reaction Surgical History SURGICAL: Negative Section or Organ Transplant Social History SMOKING STATUS: Never smoker ED Exam General Limitations: Present no limitations General appearance: Present alert and in no apparent distress Head Head exam: Present atraumatic Eye Eye exam: Present normal appearance, PERRL and EOMI ENT ENT exam: Present normal exam, normal oropharynx and mucous membranes moist Neck Neck exam: Present normal inspection, full ROM and trachea midline Chest Chest inspection: Present normal inspection and symmetric chest wall rise Respiratory Respiratory exam: Present normal lung sounds bilaterally; Absent respiratory distress, wheezes, stridor, accessory muscle use or prolonged expiratory phase Cardiovascular Cardiovascular exam: Present regular rate, normal rhythm and normal heart sounds; Absent tachycardia Abdominal Exam Abdominal exam: Present soft and normal bowel sounds; Absent tenderness Extremities Exam Extremities exam: Present normal inspection and full ROM Back Exam Back exam: Present normal inspection and full ROM Neurological Exam Neurological exam: Present alert, oriented X3 and CN II-XII intact Psychiatric Psychiatric exam: Present normal affect and normal mood Skin Skin exam: Present warm, dry, intact and normal color Course Quality Measures none Orders Category Date Time Status Bedside COVID-19 Antigen Test NOW Care 02/12/25 06:23 Completed Bedside Influenza A&B Antigen Test NOW Care 02/12/25 06:23 Completed XR chest 2V Stat Exams 02/12/25 06:23 Completed Dexamethasone Inj [Decadron Inj] Med 02/12/25 06:23 Discontinued 10 mg PO X1 ONE Vital Signs Vital signs: Vital Signs Temperature 98.8 F 02/12/25 06:15 Pulse Rate 95 02/12/25 06:15 Respiratory Rate 19 02/12/25 06:15 Blood Pressure 126/57 L 02/12/25 06:15 Pulse Oximetry (%) 96 02/12/25 06:15 Oxygen Delivery Method Room Air 02/12/25 06:15 O2 saturation 96% within normal limits Upper Respiratory Infection MDM Narrative MDM Narrative:: 34-year-old female with no known medical history presents to the emergency room with a chief complaint of cough, congestion, intermittent fevers x 1 week Patient is hemodynamically stable and in no apparent distress. Patient is not tachycardic not tachypneic afebrile and her O2 saturation is 96% on room air Physical examination shows clear bilateral lung sounds there is no wheezing stridor or any abnormal breath sounds Chest x-ray was completed and was negative for any pneumonic infiltrates but does show a mild basilar bronchitis pattern. Steroids were given with significant improvement to the patient's symptoms Patient was discharged and educated to follow-up with primary care provider in the next 24 to 48 hours and return to the emergency room for any evidence of worsening signs or symptoms Patient data External records reviewed:: [facility] previous records Clinical information provided by:: patient Social determinants that could affect healthcare access:: none Patient has the following chronic illnesses:: No chronic illness How is presenting disease/condition affected by chronic disease/condition?: no chronic disease Evaluation data The following diagnostics were reviewed and interpreted by me:: lab results and radiology exam(s) Lab and/or radiology exams considered but not ordered:: Labs and radiology exams considered and ordered Interpretation Summary: Chest [id number]: Normal heart size Mild accentuation of basilar bronchovascular markings. The osseous structures are intact IMPRESSION: Mild basilar bronchitis pattern Medications / Prescriptions Medications or Prescriptions considered but not ordered:: Medication given Medication administrations:: Medication Administration History Discontinued Medications Dexamethasone Sodium Phosphate (Dexamethasone Sod Phos Inj 10 Mg/Ml Vial) 10 mg PO X1 ONE Stop: 02/12/25 06:24 Last Admin: 02/12/25 06:31 Dose: 10 mg Documented By: BD Comments: GIVEN PO Medication given Consultations Consultation(s) initiated? (list below): No Diagnosis Upper Respiratory Differential Diagnosis: upper respiratory infection, viral infection, bronchitis, influenza and other Most likely diagnosis given after review of the tests above:: Bronchitis Admission Indicated Admission indicated?: not indicated Admission Request Was there a request for admission?: No Disposition Plan Disposition Plan: Discharge Discharge Attestation Discharge Attestation: The patient and all family members were given an opportunity to ask questions and understood the discharge instructions. Discharge instructions specifically effects, indications for sooner follow up or return to the emergency department, and the expected course of current diagnosis. Patient condition: Stable Discharge Plan Plan Patient Disposition: HOME (Self Care) Discharge Disposition comment: Stable Prescriptions/Referrals Prescriptions/Med Rec: New prednisone 20 mg tablet 40 mg PO QDAY 4 Days Qty: 8 0RF albuterol sulfate [Ventolin HFA] 90 mcg/actuation HFA aerosol inhaler 2 puff inhalation Q6H PRN (Reason: shortness of breath or wheezing) Qty: 6.7 0RF azithromycin [Zithromax Z-[place]] 250 mg tablet See Rx Instructions .ROUTE .COMPLEX Qty: 6 0RF Rx Instructions: For 250 mg dose pack: take 500 mg today (day 1), then 250 mg for 4 days (days 2-5) No Action PNV no.95-ferrous fumarate-FA [ Multivitamins] 28 mg iron- 800 mcg Tablet 1 tab PO QDAY Dermoplast (with menthol) 20-0.5 % aerosol 1 spray topical TID Qty: 56 0RF ibuprofen 800 mg tablet 800 mg PO Q6H MDD 4 PRN (Reason: pain) Qty: 90 0RF lanolin 50 % ointment 1 applic topical TID PRN (Reason: skin irritation) Qty: 15 0RF ibuprofen 800 mg tablet 800 mg PO TID PRN (Reason: pain) Qty: 30 0RF albuterol sulfate [Ventolin HFA] 90 mcg/actuation HFA aerosol inhaler 2 puff inhalation Q6H PRN (Reason: shortness of breath or wheezing) Qty: 8.5 0RF azithromycin 500 mg tablet See Rx Instructions .ROUTE .COMPLEX Qty: 6 0RF Rx Instructions: take 500 mg today (day 1), then 250 mg for 4 days (days 2-5) albuterol sulfate 90 mcg/actuation HFA aerosol inhaler 2 puff inhalation Q4H PRN (Reason: shortness of breath or wheezing) Qty: 8.5 0RF Referrals: No Primary/Family,Physician [Primary Care Provider] - In 1 week Problem List Clinical Impression: Bronchitis Patient/Caregiver Discharge Instructions Education Materials: ED Upper Resp Infec Abx Tx Additional Instructions: Please follow-up with your primary care provider in the next 24 to 48 hours Your chest x-ray showed bronchitis. Antibiotics were sent to your pharmacy as well as an inhaler and some steroids. Please pick them up and take them as indicated For any evidence of worsening signs or symptoms return to the emergency room immediately Print Language: Prydeinig Stand Alone Forms: Emilie Award Info., Work/School Release, Patient Portal Info Letter PA/PACS ADMINISTRATOR Supervising Physician PA/PACS ADMINISTRATOR Supervising Physician: Dr. GUTIERREZ
[2025-02-12] MEDS: DEXAMETHASONE SOD PHOS INJ 10 MG/ML VIAL PO (06:31)
== END 2025-02-12 08:21 | disposition home or self-care (01) ==
PROVIDERS: Emergency Provider Emergency Medicine
DX: J40 Bronchitis, not specified as acute or chronic (principal)
CPT/HCPCS: 71046; 87400; 87811; 99283; J1100

== ENCOUNTER 2025-03-18 19:00 | Emergency (ER) | payer MEDICAID, SELFPAY ==
[2025-03-18 19:02] VITALS: BMI 34.6
[2025-03-18 19:24] VITALS: BP 144/68; PULSE 55; RESP 20; TEMP 36.9; O2SAT 99
--- NOTE | 2025-03-18 19:39 | XR_ITS ---
Examination: Retroperitoneal ultrasound, complete Technique: Multiple high resolution grayscale images of the retroperitoneum obtained, including kidneys and bladder. Exam date and time:March 18, 2025 2109 hrs. Indications: Left-sided flank pain beginning this week Findings: Right kidney 10.6 x 5.1 x 4.7 cm cortex 1.6 cm Left kidney 11.0 x 7.2 x 3.5 cm cortex 1.3 cm Moderate renal scar formation No hydronephrosis No bladder mass or bladder calculi Contracted urinary bladder Impression: Moderate renal scar formation No hydronephrosis or renal calculi
--- NOTE | 2025-03-18 19:39 | XR_ITS ---
Examination: Transvaginal ultrasound of the pelvis, complete Technique: Transvaginal sonographic images pelvis performed using carrasco scale imaging Exam date and time: March 18, 2025, 2129 hrs. Indications: Right-sided pelvic pain with vaginal bleeding beginning 2 hours ago today Findings: Uterus 10.6 cm endometrial stripe 1.9 cm No uterine mass or intrauterine gestation Right ovary 3.2 cm arterial flow. Left ovary 3.1 cm arterial flow Mild fluid in the cul-de-sac Impression: No uterine mass or intrauterine gestation.
[2025-03-18] MEDS: ONDANSETRON ODT 4 MG TABRAP PO (19:55)
[2025-03-18 20:04] LABS: Basophils # (Auto) 0.1 Thou/mm3 (0.0-0.2); Basophils % (Auto) 0 % (0-2.5); Eosinophils # (Auto) 0.2 Thou/mm3 (0.0-0.5); Eosinophils % (Auto) 1 % (0-10); Hematocrit 39.5 % (36.0-46.0); Hemoglobin 13.3 g/dL (12.0-16.0); Immature Granulocytes Auto 0.05 Thou/mm3 (0.00-0.00); Lymphocytes # (Auto) 2.3 Thou/mm3 (1.0-4.8); Lymphocytes % (Auto) 17 % (10-50); Mean Corpuscular HGB Conc 33.7 g/dl (31.0-37.0); Mean Corpuscular Hemoglobin 28.9 pg (25.0-35.0); Mean Corpuscular Volume 86 fL (80-100); Monocytes # (Auto) 0.6 Thou/mm3 (0.0-0.8); Monocytes % (Auto) 5 % (0-12); Neutrophils # (Auto) 10.3 Thou/mm3 (1.8-7.7); Neutrophils % (Auto) 77 % (37-80); Nucleated Red Blood Cell # 0.00 Thou/mm3 (0.00-0.00); Nucleated Red Blood Cell % 0 /100 WBC (0); Platelet Count 263 Thou/mm3 (140-440); RDW Standard Deviation 40.7 fL (36.4-46.3); Red Blood Count 4.60 Miln/mm3 (4.00-5.20); White Blood Count 13.4 Thou/mm3 (3.6-11.0)
[2025-03-18] MEDS: HYDROcodone/APAP 5/325 TABLET 1 TAB PO (20:15)
[2025-03-18 20:25] LABS: Alanine Aminotransferase 40 U/L (10-49); Albumin, Serum 4.3 gm/dL (3.5-5.0); Albumin/Globulin Ratio 1.7 (1.2-2.2); Alkaline Phosphatase 57 U/L (46-116); Anion Gap 9 (7-16); Aspartate Amino Transferase 48 U/L (0-34); BUN/Creatinine Ratio 10 Ratio (12-20); Bilirubin,Total 0.6 mg/dL (0.3-1.2); Blood Urea Nitrogen 8 mg/dL (9-23); Calcium 9.1 mg/dL (8.3-10.6); Calcium (Corrected) 9.1 mg/dL (8.5-10.1); Carbon Dioxide 25.8 mMol/L (20.0-31.0); Chloride 107 mMol/L (98-107); Creatinine (Component) 0.8 mg/dL (0.6-1.3); Estimated Creatinine Clearance 118.3 mL/min (>60); Globulin 2.5 gm/dL (2.3-3.5); Glucose 125 mg/dL (74-106); Osmolality,Calculated 282 (275-295); Potassium 3.6 mMol/L (3.4-5.1); Sodium 142 mMol/L (136-145); Total Protein 6.8 gm/dL (5.7-8.2); eGFR > 60 See Note
[2025-03-18 20:26] LABS: Collection Type, Urine Voided
[2025-03-18 20:31] LABS: HCG Qualitative,Urine Positive
[2025-03-18 20:36] LABS: Bilirubin,Urine Negative (Negative); Blood,Urine 3+ (Negative); Color,Urine Brown (Lt Yel-Yel); Glucose, Urine Negative (Negative); Ketones,Urine Trace (Negative); Leukocyte Esterase,Urine Positive (Negative); Nitrite,Urine Negative (Negative); PH,Urine 6.0 (5.0-7.0); Protein,Urine 1+ (Neg - Trace); RBC,Urine 4378 /hpf (0-3); Specific Gravity,Urine 1.032 (1.001-1.035); Squamous Epithelial Cell,Urine 11 /hpf (0-5); Urobilinogen,Urine Negative mg/dL (0.0-1.0); WBC,Urine 90 /hpf (0-5)
[2025-03-18 20:37] LABS: Clarity,Urine Turbid (Clear/Hazy)
[2025-03-18 23:32] LABS: Beta HCG,Quantitative 898 mIU/mL (<5.0)
--- NOTE | 2025-03-19 00:05 | EDNOTE_ITS ---
ED OB Contraction Preg RMI/HPI General Chief complaint: General Adult/Misc Complain Stated complaint: LEFT GROIN PAIN, VAGINAL BLEEDING, NAUSEATED Time Seen by Provider: 03/18/25 19:01 Arrival date/time: 03/18/25 19:00 This is a case of 34-year-old female with no medical history came in in the emergency room due to left pelvic pain for 3 days associated with nausea due to worsening of the symptoms now with vaginal bleeding thus patient decided to sought consult here in the emergency room patient is 1 para 1 denies patient is irregular last LMP was September 2024 patient is sexually active Limitations: no limitations Related Data Home Medications ?Medication ?Instructions ?Recorded ?Confirmed vit no.95-ferrous 1 tab PO QDAY 04/08/2109/27 fumarate 28 mg-folic acid 800 mcg tablet ( Multivitamins) Previous Rx's ?Medication ?Instructions ?Recorded benzocaine 20 %-menthol 0.5 % 1 spray topical TID #56 pumps 10/07/21 topical aerosol (Dermoplast (with menthol)) ibuprofen 800 mg tablet 800 mg PO Q6H PRN pain #90 t abs 10/07/21 lanolin 50 % topical ointment 1 applic topical TID PRN skin 10/07/21 irritation #15 tubes ibuprofen 800 mg tablet 800 mg PO TID PRN pain #30 t abs 05/27/22 albuterol sulfate 90 mcg/actuation 2 puff inhalation Q 6H PRN 06/29/23 aerosol inhaler (Ventolin HFA) shortness of breath or wheezing #8.5 grams azithromycin 500 mg tablet See Rx Instructions PO .COM PLEX #6 06/29/23 tabs albuterol sulfate 90 mcg/actuation 2 puff inhalation Q 4H PRN 07/11/24 aerosol inhaler shortness of breath or wheez ing #8.5 grams albuterol sulfate 90 mcg/actuation 2 puff inhalation Q 6H PRN 02/12/25 aerosol inhaler (Ventolin HFA) shortness of breath or wheezing #6.7 grams azithromycin 250 mg tablet See Rx Instructions PO .COM PLEX #6 02/12/25 (Zithromax Z-Holland) tabs cephalexin 500 mg capsule 500 mg PO QID 10 days #40 ca ps 03/19/25 Allergies Allergy/AdvReac Type Severity Reaction Status Date / Time No Known Allergies Allergy Verified 03/18/25 19:02 Review of Systems Review of Systems Systems Reviewed: All systems reviewed, normal except as documented Constitutional Constitutional: Reports system reviewed and no additional complaints, except as documented and Reports as per HPI Cardiovascular Cardiovascular: Reports system reviewed and no additional complaints, except as documented and Reports as per HPI Respiratory Respiratory: Reports system reviewed and no additional complaints, except as documented and Reports as per HPI Gastrointestinal Gastrointestinal: Reports system reviewed and no additional complaints, except as documented and Reports as per HPI Genitourinary Genitourinary: Reports system reviewed and no additional complaints, except as documented and Reports as per HPI Integumentary/Breasts Skin/Breast: Reports system reviewed and no additional complaints, except as documented and Reports as per HPI Neurologic Neurologic: Reports system reviewed and no additional complaints, except as documented and Reports as per HPI Past Medical History Past Medical History NEUROLOGIC: Positive Neurological Disorders and Seizures CARDIAC: Negative Cardiac Disorders or Congestive Heart Failure RESPIRATORY: Negative Chronic Obstructive Pulmonary Disease (COPD) or Asthma GASTROINTESTINAL: Negative Gastrointestinal Disorders GENITOURINARY: Negative Genitourinary Disorders or Renal Disease REPRODUCTIVE: Negative Pelvic Inflammatory Disease MUSCULOSKELETAL: Negative Musculoskeletal Disorders ENDOCRINE: Negative Endocrine Disorders, Diabetes Mellitus Type 1 or Diabetes Mellitus Type 2 HEMATOLOGIC: Negative Blood Disorders or Sickle Cell Disease OTHER HISTORY: Negative Autoimmune Disease, Blood Transfusions, Blood Transfusion Reaction, Anesthesia Reactions, Organ Transplant, Chemotherapy, Radiation Therapy, Hyperbaric Therapy, MRSA, VRSA, Vancomycin-Resistant Enterococci or Cancer Family History FAMILY HISTORY: Positive Family Cardiac Disorders and Family Surgery; Negative Family Psychiatric Problems, Family Respiratory Disorders, Family Gastrointestinal Problems, Family Cancer or Family Anesthesia Reaction Surgical History SURGICAL: Negative Section or Organ Transplant Social History SMOKING STATUS: Current some day smoker ED Exam General Limitations: Present no limitations General appearance: Present alert, in no apparent distress and other (Patient is awake alert oriented not in distress nontoxic looking well-hydrated well- nourished) Head Head exam: Present atraumatic, normocephalic and normal inspection Eye Eye exam: Present normal appearance, PERRL and EOMI ENT ENT exam: Present normal exam, normal oropharynx and mucous membranes moist Neck Neck exam: Present normal inspection, full ROM and trachea midline; Absent tenderness, meningismus, lymphadenopathy or thyromegaly Chest Chest inspection: Present normal inspection and symmetric chest wall rise; Absent tenderness Respiratory Respiratory exam: Present normal lung sounds bilaterally; Absent respiratory distress, wheezes, stridor, accessory muscle use or prolonged expiratory phase Cardiovascular Cardiovascular exam: Present regular rate, normal rhythm and normal heart sounds; Absent bradycardia, tachycardia, irregular rhythm, systolic murmur or diastolic murmur Abdominal Exam Abdominal exam: Present soft, tenderness (Mild tenderness on left suprapubic area but no guarding no rebound no rigidity negative psoas negative straight or negative Rovsing's negative McBurney's tender Kirk sign negative CVA tenderness bladder is not distended not tender) and normal bowel sounds; Absent distention, guarding, rebound, rigidity, diminished bowel sounds, hyperactive bowel sounds, hypoactive bowel sounds or organomegaly Extremities Exam Extremities exam: Present normal inspection and full ROM Back Exam Back exam: Present normal inspection and full ROM Neurological Exam Neurological exam: Present alert, oriented X3, CN II-XII intact, normal gait and reflexes normal; Absent motor sensory deficit Psychiatric Psychiatric exam: Present normal affect and normal mood Skin Skin exam: Present warm, dry, intact and normal color Course Quality Measures none Orders Category Date Time Status US renal BI Stat Exams 03/18/25 19:39 Completed US transvaginal Stat Exams 03/18/25 19:39 Completed Beta HCG,Quantitative Stat Lab 03/18/25 19:57 Completed CBC Stat Lab 03/18/25 19:57 Completed CMP [Comprehensive Metabolic Panel] Stat Lab 03/18/25 19:57 Completed HCG Qualitative,Urine Stat Lab 03/18/25 20:06 Completed Urinalysis Stat Lab 03/18/25 20:06 Completed HYDROcodone*/APAP 5/325 [[place] 5/325] Med 03/18/25 19:46 Discontinued 1 tab PO X1 ONE Ondansetron Odt [Zofran Odt] Med 03/18/25 19:46 Discontinued 4 mg PO X1 ONE Vital Signs Vital signs: Vital Signs Temperature 98.4 F 03/18/25 19:24 Pulse Rate 55 L 03/18/25 19:24 Respiratory Rate 03/18/25 19:24 Blood Pressure 144/68 H 03/18/25 19:24 Pulse Oximetry (%) 99 03/18/25 19:24 Oxygen Delivery Method Room Air 03/18/25 19:24 Oxygen saturation is 99% in room air normal Vaginal Bleeding MDM Narrative MDM Narrative: This is a case of 34-year-old female with no medical history came in in the emergency room due to left pelvic pain for 3 days associated with nausea due to worsening of the symptoms now with vaginal bleeding thus patient decided to sought consult here in the emergency room patient is 1 para 1 denies patient is irregular last LMP was September 2024 patient is sexually active physical examination patient is awake alert oriented not in distress nontoxic looking well-hydrated well-nourished abdominal exam is benign nonsurgical no guarding no rebound no rigidity but with mild tenderness on the left pelvic area no guarding no rebound no rigidity negative psoas negative straight or negative Rovsing's negative Brittany's negative Kirk sign negative CVA tenderness bladder is not distended not tender excellent skin turgor the rest of the physical examination neurological exam is normal and unremarkable blood test showed leukocytosis at 13.4 no anemia kidney and liver function is normal no electrolyte imbalance patient glucose is normal patient beta-hCG was 898 patient urinalysis showed WBC and blood in urine suggestive of urinary tract infection patient ultrasound of kidney normal no kidney stone ultrasound of the pelvic showed no intrauterine mass no intrauterine based on my physical examination and history I cannot totally ruled out ectopic early spontaneous incomplete or threatened she was advised to return in 2 days for reevaluation and to have repeat pelvic ultrasound and beta-hCG patient was advised to see an OB butcher or smallgoods maker as soon as possible for further evaluation and treatment and for checkup patient will follow-up with PCP in 2 days for reevaluation she was discharged with cephalexin for urinary tract infection worsening symptoms or any emergent concerns she was advised to return in the emergency room immediately or call [address] beck OB butcher or smallgoods maker on-call agreed that the patient can be discharged and follow-up in 2 days here in the emergency room for repeat beta- hCG and pelvic ultrasound to rule out ectopic spontaneous early incomplete or threatened Patient was discharged with comfortable condition walking with stable gait. Patient verbalized no further complains explained diagnosis and answered patient question. Patient is comfortable with the proposed management plan including the need to follow up with his/her primary care physician and any specialist if applicable Discussed patient for any urgent condition or worsening sx, He/She needed to go to emergency room immediately or call 911. Patient acknowledge the responsibility to follow up as instructed and to monitor her/his symptoms. For any persistence of the symptoms for more than 3-5 days return precaution advised. Discussed the result of the test and was given printed discharge instruction Patient data External records reviewed:: [facility] previous records Clinical information provided by:: patient Social determinants that could affect healthcare access:: none Patient has the following chronic illnesses:: None How is presenting disease/condition affected by chronic disease/condition?: no chronic disease Evaluation data The following diagnostics were reviewed and interpreted by me:: lab results and radiology exam(s) Lab and/or radiology exams considered but not ordered:: Reviewed Interpretation Summary: Reviewed Medications / Prescriptions Medications or Prescriptions considered but not ordered:: Given Medication administrations:: Medication Administration History Discontinued Medications Hydrocodone Bitart/Acetaminophen (Hydrocodone/[place]ap 5/325 Tablet) 1 tab PO X1 ONE Stop: 03/18/25 19:47 Last Admin: 03/18/25 20:15 Dose: 1 tab Documented By: Ondansetron HCl (Ondansetron Odt 4 Mg Tabrap) 4 mg PO X1 ONE; Protocol Stop: 03/18/25 19:47 Last Admin: 03/18/25 19:55 Dose: 4 mg Documented By: Given Consultations Consultation(s) initiated? (list below): Yes Consultation #1 (Physician, Specialty, Details): dr beck agreed that the patient can be discharged and follow-up in 2 days here in the emergency room for repeat beta-hCG and pelvic ultrasound to rule out ectopic spontaneous early incomplete or threatened Diagnosis Vaginal Bleeding Differential Diagnosis: missed , threatened , dysfunctional uterine bleeding, menometrorrhagia, ectopic without intrauterine and vaginal bleeding Most likely diagnosis given after review of the tests above:: Urinary tract infection abnormal vaginal bleeding possible Admission Indicated Admission indicated?: not indicated Explain why admission is indicated or not indicated:: Not indicated Admission Request Was there a request for admission?: No Disposition Plan Disposition Plan: Discharge Discharge Attestation Discharge Attestation: The patient and all family members were given an opportunity to ask questions and understood the discharge instructions. Discharge instructions specifically effects, indications for sooner follow up or return to the emergency department, and the expected course of current diagnosis. Patient condition: Stable Discharge Plan Plan Patient Disposition: HOME (Self Care) Patient condition on transfer: Stable Prescriptions/Referrals Prescriptions/Med Rec: New cephalexin 500 mg capsule 500 mg PO QID 10 Days Qty: 40 0RF No Action PNV no.95-ferrous fumarate-FA [ Multivitamins] 28 mg iron- 800 mcg Tablet 1 tab PO QDAY Dermoplast (with menthol) 20-0.5 % aerosol 1 spray topical TID Qty: 56 0RF ibuprofen 800 mg tablet 800 mg PO Q6H MDD 4 PRN (Reason: pain) Qty: 90 0RF lanolin 50 % ointment 1 applic topical TID PRN (Reason: skin irritation) Qty: 15 0RF ibuprofen 800 mg tablet 800 mg PO TID PRN (Reason: pain) Qty: 30 0RF albuterol sulfate [Ventolin HFA] 90 mcg/actuation HFA aerosol inhaler 2 puff inhalation Q6H PRN (Reason: shortness of breath or wheezing) Qty: 8.5 0RF azithromycin 500 mg tablet See Rx Instructions .ROUTE .COMPLEX Qty: 6 0RF Rx Instructions: take 500 mg today (day 1), then 250 mg for 4 days (days 2-5) albuterol sulfate 90 mcg/actuation HFA aerosol inhaler 2 puff inhalation Q4H PRN (Reason: shortness of breath or wheezing) Qty: 8.5 0RF albuterol sulfate [Ventolin HFA] 90 mcg/actuation HFA aerosol inhaler 2 puff inhalation Q6H PRN (Reason: shortness of breath or wheezing) Qty: 6.7 0RF azithromycin [Zithromax Z-Hol[place]] 250 mg tablet See Rx Instructions .ROUTE .COMPLEX Qty: 6 0RF Rx Instructions: For 250 mg dose pack: take 500 mg today (day 1), then 250 mg for 4 days (days 2-5) Referrals: Nakia Mccall CNM [Certified Nurse Leach Runner, Obstetrics] - 03/20/25 Referral Note: For further evaluation and treatment of possible with vaginal bleeding to ruled out ectopic spontaneous incomplete or early or threatened No Primary/Family,Physician [Primary Care Provider] - In 1 week Problem List Clinical Impression: Pelvic pain, Possible , not confirmed, Abnormal vaginal bleeding, Urinary tract infection Patient/Caregiver Discharge Instructions Education Materials: Urinary Tract Infections in Women, First Trimest er, ED Dysfunctional Uterine Bleeding, ED Pelvic Pain, Unknown Cause Additional Instructions: Follow-up with your primary care physician in 2 days for reevaluation and to be referred to OB butcher or smallgoods maker for further evaluation and treatment of possible and for checkup and to have repeat pelvic ultrasound and beta-hCG to ruled out ectopic early spontaneous threatened or incomplete if not seen in 2 days Go to back here in the emergency room for further evaluation and treatment and to have repeat pelvic ultrasound and beta-hCG worsening symptoms persistent or any emergent concern call 911 or go to the nearest emergency room take your medication as directed finish the course of antibiotic keep hydrated pelvic rest is advised no sex until cleared by your primary care physician continue multivitamins Print Language: Emirati Stand Alone Forms: Emilie Award Info., Patient Portal Info Letter PA/AIRPLANE ELECTRICAL REPAIRER Supervising Physician PA/AIRPLANE ELECTRICAL REPAIRER Supervising Physician: Dr. Singleton
== END 2025-03-19 00:46 | disposition home or self-care (01) ==
PROVIDERS: Nurse Practitioner Family; Emergency Provider Family Medicine
DX: N39.0 Urinary tract infection, site not specified (principal); N93.9 Abnormal uterine and vaginal bleeding, unspecified; F17.200 Nicotine dependence, unspecified, uncomplicated
CPT/HCPCS: 36415; 76770; 76830; 80053; 81001; 81025; 84702; 84703; 85025; 99283; Q0162; A9270

== ENCOUNTER 2025-06-20 19:15 | Emergency (ER) | payer MEDICAID, SELFPAY ==
[2025-06-20 19:39] VITALS: BP 134/87; PULSE 60; RESP 18; TEMP 36.9; O2SAT 98
--- NOTE | 2025-06-20 19:47 | XR_ITS ---
EXAMINATION: PA lateral chest 2 views TECHNIQUE: Upright PA lateral chest 2 views Date and time: June 20, 2025, 2002 hours. INDICATIONS: Coughing 2 weeks with chest pain FINDINGS: Normal heart size Lungs are clear. Intact osseous structures IMPRESSION: No active disease
--- NOTE | 2025-06-20 19:48 | EDNOTE_ITS ---
Upper Respiratory Inf. RME/HPI General Chief Complaint: Flu Like Symptoms Stated Complaint: COUGHING Time Seen by Provider: 06/20/25 19:45 Arrival date/time: 06/20/25 19:15 35F with history of seizures presents to ED with 2 weeks of cough. Limitations: no limitations Related Data Home Medications ?Medication ?Instructions ?Recorded ?Confirmed vit no.95-ferrous 1 tab PO QDAY 04/08/2109/27 fumarate 28 mg-folic acid 800 mcg tablet ( Multivitamins) Previous Rx's ?Medication ?Instructions ?Recorded benzocaine 20 %-menthol 0.5 % 1 spray topical TID #56 pumps 10/07/21 topical aerosol (Dermoplast (with menthol)) ibuprofen 800 mg tablet 800 mg PO Q6H PRN pain #90 t abs 10/07/21 lanolin 50 % topical ointment 1 applic topical TID PRN skin 10/07/21 irritation #15 tubes ibuprofen 800 mg tablet 800 mg PO TID PRN pain #30 t abs 05/27/22 albuterol sulfate 90 mcg/actuation 2 puff inhalation Q 6H PRN 06/29/23 aerosol inhaler (Ventolin HFA) shortness of breath or wheezing #8.5 grams azithromycin 500 mg tablet See Rx Instructions PO .COM PLEX #6 06/29/23 tabs albuterol sulfate 90 mcg/actuation 2 puff inhalation Q 4H PRN 07/11/24 aerosol inhaler shortness of breath or wheez ing #8.5 grams albuterol sulfate 90 mcg/actuation 2 puff inhalation Q 6H PRN 02/12/25 aerosol inhaler (Ventolin HFA) shortness of breath or wheezing #6.7 grams azithromycin 250 mg tablet See Rx Instructions PO .COM PLEX #6 02/12/25 (Zithromax Z-[place]) tabs Allergies Allergy/AdvReac Type Severity Reaction Status Date / Time No Known Allergies Allergy Verified 03/18/25 19:02 Review of Systems Review of Systems Systems Reviewed: All systems reviewed, normal except as documented Respiratory Respiratory: Reports as per HPI and Reports cough Past Medical History Past Medical History NEUROLOGIC: Positive Neurological Disorders and Seizures CARDIAC: Negative Cardiac Disorders or Congestive Heart Failure RESPIRATORY: Negative Chronic Obstructive Pulmonary Disease (COPD) or Asthma GASTROINTESTINAL: Negative Gastrointestinal Disorders GENITOURINARY: Negative Genitourinary Disorders or Renal Disease REPRODUCTIVE: Negative Pelvic Inflammatory Disease MUSCULOSKELETAL: Negative Musculoskeletal Disorders ENDOCRINE: Negative Endocrine Disorders, Diabetes Mellitus Type 1 or Diabetes Mellitus Type 2 HEMATOLOGIC: Negative Blood Disorders or Sickle Cell Disease OTHER HISTORY: Negative Autoimmune Disease, Blood Transfusions, Blood Transfusion Reaction, Anesthesia Reactions, Organ Transplant, Chemotherapy, Radiation Therapy, Hyperbaric Therapy, MRSA, VRSA, Vancomycin-Resistant Enterococci or Cancer Family History FAMILY HISTORY: Positive Family Cardiac Disorders and Family Surgery; Negative Family Psychiatric Problems, Family Respiratory Disorders, Family Gastrointestinal Problems, Family Cancer or Family Anesthesia Reaction Surgical History SURGICAL: Negative Section or Organ Transplant Social History SMOKING STATUS: Current every day smoker ED Exam General Limitations: Present no limitations General appearance: Present alert and in no apparent distress Head Head exam: Present atraumatic ENT ENT exam: Present normal exam, normal oropharynx and mucous membranes moist Neck Neck exam: Present normal inspection, full ROM and trachea midline Chest Chest inspection: Present normal inspection and symmetric chest wall rise Respiratory Respiratory exam: Present normal lung sounds bilaterally Neurological Exam Neurological exam: Present alert and oriented X3 Psychiatric Psychiatric exam: Present normal affect and normal mood Skin Skin exam: Present warm, dry, intact and normal color Course Quality Measures none Orders Category Date Time Status XR chest 2V Stat Exams 06/20/25 19:47 Completed dexAMETHasone INJ [Decadron Inj] Med 06/20/25 21:23 Discontinued 10 mg PO X1 ONE Vital Signs Vital signs: Vital Signs Temperature 98.4 F 06/20/25 19:39 Pulse Rate 60 06/20/25 19:39 Respiratory Rate 18 06/20/25 19:39 Blood Pressure 134/87 H 06/20/25 19:39 Pulse Oximetry (%) 98 06/20/25 19:39 Oxygen Delivery Method Room Air 06/20/25 19:39 O2 at 98% on RA and WNLs Upper Respiratory Infection MDM Narrative MDM Narrative:: 35F with history of seizures presents to ED with 2 weeks of cough. Physical exam reveals clear lungs and normal WOB. Clear oropharynx. Patient is afebrile, calm, and alert. Patient eloped. Patient data External records reviewed:: [facility] previous records Clinical information provided by:: patient Social determinants that could affect healthcare access:: none Patient has the following chronic illnesses:: seizures How is presenting disease/condition affected by chronic disease/condition?: uneffected by Evaluation data The following diagnostics were reviewed and interpreted by me:: radiology exam(s) Lab and/or radiology exams considered but not ordered:: ordered Interpretation Summary: above Medications / Prescriptions Medications or Prescriptions considered but not ordered:: ordered Medication administrations:: Medication Administration History Discontinued Medications Dexamethasone Sodium Phosphate (Dexamethasone Sod Phos Inj 10 Mg/Ml Vial) 10 mg PO X1 ONE Stop: 06/20/25 21:24 eloped Consultations Consultation(s) initiated? (list below): No Diagnosis Upper Respiratory Differential Diagnosis: upper respiratory infection, croup, otitis media, sinusitis, viral infection, bronchitis, influenza, pharyngitis and other (CAP, cough) Most likely diagnosis given after review of the tests above:: cough Admission Indicated Admission indicated?: not indicated Admission Request Was there a request for admission?: No Disposition Plan Disposition Plan: other (specify) (eloped) Discharge Plan Plan Patient Disposition: Elopement Prescriptions/Referrals Prescriptions/Med Rec: No Action PNV no.95-ferrous fumarate-FA [ Multivitamins] 28 mg iron- 800 mcg Tablet 1 tab PO QDAY Dermoplast (with menthol) 20-0.5 % aerosol 1 spray topical TID Qty: 56 0RF ibuprofen 800 mg tablet 800 mg PO Q6H MDD 4 PRN (Reason: pain) Qty: 90 0RF lanolin 50 % ointment 1 applic topical TID PRN (Reason: skin irritation) Qty: 15 0RF ibuprofen 800 mg tablet 800 mg PO TID PRN (Reason: pain) Qty: 30 0RF albuterol sulfate [Ventolin HFA] 90 mcg/actuation HFA aerosol inhaler 2 puff inhalation Q6H PRN (Reason: shortness of breath or wheezing) Qty: 8.5 0RF azithromycin 500 mg tablet See Rx Instructions .ROUTE .COMPLEX Qty: 6 0RF Rx Instructions: take 500 mg today (day 1), then 250 mg for 4 days (days 2-5) albuterol sulfate 90 mcg/actuation HFA aerosol inhaler 2 puff inhalation Q4H PRN (Reason: shortness of breath or wheezing) Qty: 8.5 0RF albuterol sulfate [Ventolin HFA] 90 mcg/actuation HFA aerosol inhaler 2 puff inhalation Q6H PRN (Reason: shortness of breath or wheezing) Qty: 6.7 0RF azithromycin [Zithromax Z-[place]] 250 mg tablet See Rx Instructions .ROUTE .COMPLEX Qty: 6 0RF Rx Instructions: For 250 mg dose pack: take 500 mg today (day 1), then 250 mg for 4 days (days 2-5) Referrals: No Primary/Family,Physician [Primary Care Provider] - In 1 week Problem List Clinical Impression: Cough Patient/Caregiver Discharge Instructions Print Language: Setswana PA/AIR CONDITIONING SHEET METAL INSTALLER Supervising Physician PA/AIR CONDITIONING SHEET METAL INSTALLER Supervising Physician: Dr. Singleton
--- NOTE | 2025-06-20 21:37 | PC.NURSE ---
NO ANSWER AT ER LOBBY OR OUTSIDE ER TO BE DRAWN BLOOD.
--- NOTE | 2025-06-20 21:46 | PC.NURSE ---
NO ANSWER AT ER LOBBY OR OUTSIDE ER TO BE DRAWN BLOOD.
--- NOTE | 2025-06-20 22:01 | PC.NURSE ---
NO ANSWER AT ER LOBBY OR OUTSIDE ER.
== END 2025-06-20 22:02 | disposition left against medical advice (07) ==
LOC: SERX 19:54
PROVIDERS: Emergency Provider Emergency Medicine
DX: R05.9 Cough, unspecified (principal)
CPT/HCPCS: 71046; 80053; 84484; 85025; 85379; 99282